=== PATIENT | male | born 2000 | race Caucasian/White ===

== ENCOUNTER 2025-09-07 11:33 | Emergency (ER) | payer OTHER, SELFPAY ==
--- NOTE | ~2025-09-07 | XR_ITS ---
EXAMINATION: XR CHEST CLINICAL INFORMATION: chest pain COMPARISON: None available. TECHNIQUE: 2 views of the chest were obtained. FINDINGS: No significant abnormality is noted involving the heart, lungs, mediastinum, bony thorax or soft tissues. XR/XR chest 2V IMPRESSION: No acute disease Electronically signed by: Lewis Faustin MD 09/07/2025 12:31 PM [facility] [place]
--- NOTE | 2025-09-07 11:34 | ECG_ITS ---
Test Reason : palpitations Blood Pressure : */* mmHG Vent. Rate : 75 BPM Atrial Rate : 75 BPM P-R Int : 134 ms QRS Dur : 90 ms QT Int : 372 ms P-R-T Axes : 52 91 50 degrees QTcB Int : 415 ms Normal sinus rhythm with sinus arrhythmia Rightward axis Nonspecific T wave abnormality Abnormal ECG No previous ECGs available Referred By: Brianna Morelos Electronically Signed By: Domenic Knight
[2025-09-07 11:42] VITALS: BP 135/77; PULSE 70; RESP 16; TEMP 36.6; O2SAT 100; BMI 21.0
--- NOTE | 2025-09-07 11:42 | ED.ARRPALP ---
HPI - Arrhythmia/Palpitations General Chief Complaint: General Medical Stated Complaint: palpitations Time Seen by Provider: 09/07/25 12:30 Source: patient Mode of arrival: ambulatory Limitations: no limitations History of Present Illness HPI narrative: This is a 25 years old male with no past medical history presented to emergency department complaining of palpitation he stated that yesterday the heart rate was about 150. Patient denies any fever or chills vomiting. MD complaint: rapid heart beat and heart racing Onset (ago): day(s) (1) Duration: constant Severity: moderate Context: occurred during rest Associated symptoms: denies other symptoms Related Data Allergies Allergy/AdvReac Type Severity Reaction Status Date / Time No Known Allergies Allergy Verified 09/07/25 11:43 Review of Systems Review of Systems: Yes all other systems are reviewed and are negative [facility] Past Medical History Attestation statement: The following information was validated with the patient. [facility] Narrative: Denies any major medical problems Social History Social History Advance Directives: No Advance Directives Information Provided: No Physical Exam Exam: Exam: No acute distress comfortable in the stretcher Vital Signs: Vital Signs: Last Vital Signs Temp 97.8 F 09/07/25 11:42 Pulse 83 09/07/25 14:26 Resp 14 09/07/25 14:26 BP 134/79 09/07/25 14:26 Pulse Ox 99 09/07/25 14:26 O2 Del Method Room Air 09/07/25 14:26 BMI result Body Mass Index 21.0 Const: General: cooperative, comfortable and no acute distress Nutritional Appearance: average body habitus Orientation/consciousness: patient oriented x3 Limitations: no limitations HEENT: Head: Yes normal to inspection General nose exam: Normal external nose present Face and sinus: Yes normal facial exam Mouth: Normal oral and palatal mucosa present Throat: Yes posterior oropharynx normal Neck: Neck: Yes normal visual inspection Chest: Chest palpation & inspection: normal inspection of the chest Resp: Effort & Inspection: normal respiratory effort Auscultation: clear to auscultation bilaterally Cardio: Jugular venous distension: no JVD Rate: regular rate Rhythm: regular rhythm GI: Inspection: Yes normal to inspection Palpation (GI): Soft to palpation, not firm and nontender Percussion: Yes normal to percussion Auscultation: normal bowel sounds Skin: General skin exam: no rashes or lesions noted, elasticity normal and turgor normal Lesions: no lesions Rashes: no rashes Neuro: General: patient oriented x3 Cranial nerves: Yes CN's II-XII intact bilaterally Course Course Course Narrative: This is an RME: Additional HPI, ROS, PE not included below will be deferred to primary provider. RME assessment and note performed by: Brianna Morelos PA-C This is a 36-yhmd-sij-male, with no known medical problems, who presents to the ER with complaints of palpitations. Reports last night he was in bed and felt as though his left side of his body was getting cold and numb, heart rate when to 156s to 40s, then back up to 140s-150s. Then felt he was very tense and felt his whole body was andre. Reports that he did have chest pain and palpitations. Reports that he is still feeling out of it , feeling BL hand tingling/numbness. Mom and dad both have afib. Recent travel to [place] 2 weeks ago. Reports that he has alot of sinus congestion and cough/congestion. Plan: Labs, EKG, CXR, further ER eval needed Reevaluation(s) Reevaluation #1: The patient remained stable he was monitor to in the emergency department for few hours remained in sinus rhythm he was also seen by Cardiology okay to discharge home I did a point of care ultrasound of his heart no pericardial effusion no wall motion abnormality Time: 14:39 Medical Decision Making Medical Decision Making [facility] Narrative: Patient is here complaining of palpitation SI as 150 yesterday differential diagnosis SVT/atrial fibrillation we will do an electrocardiogram and check labs Differential Diagnosis Differential Diagnoses: The differential diagnosis associated with the presentation includes SVT/AFib/a flutter Admission/Observation Consideration of admission/observation: Escalation of care including admission/observation considered Lab Data [facility] Lab Attestation statement: I reviewed the patient's lab results. 09/07/25 12:00 09/07/25 12:00 Labs: Lab Results 09/07/25 09/07/25 Range/Units 12:00 Unknown WBC 7.5 (4.8-10.8) X10*3/uL RBC 5.16 (4.60-5.80) X10*6/uL Hgb 15.6 (14.0-18.0) g/dl Hct 45.8 (42.0-52.0) % MCV 88.8 (80.0-98.0) fL MCH 30.2 (27.0-33.0) pg MCHC 34.1 (31.0-36.0) g/dl RDW 12.3 (11.0-16.0) % Plt Count 144 L (160-400) X10*3/uL MPV 12.9 H (9.4-12.4) fL Immature Gran % (Auto) 0.5 H (0.0-0.4) % Neut % (Auto) 50.6 (45-73) % Lymph % (Auto) 39.3 (20-40) % [place] % (Auto) 8.2 (2-11) % Eos % (Auto) 0.9 (0-4) % Baso % (Auto) 0.5 (0-2) % Lymph # (Auto) 2.9 (1.2-4.9) X10*3/uL [place] # (Auto) 0.6 (0.1-1.2) X10*3/uL Eos # (Auto) 0.1 (0.0-0.4) X10*3/uL Baso # (Auto) 0.0 (0.0-0.2) X10*3/uL Abs Immat Gran (auto) 0.04 H (0.00-0.03) X10*3/uL Absolute Neuts (auto) 3.8 (2.0-8.3) x10*3/uL Absolute Nucleated RBC 0.000 (0.0-0.012) X10*3/uL Nucleated RBC % (auto) 0.0 (0.0-0.2) /100WBC PT 12.7 (11.2-13.5) SEC INR 1.0 (0.9-1.1) Sodium 142 (135-145) mmol/L Potassium 4.1 (3.3-5.1) mmol/L Chloride 106 (96-108) mmol/L Carbon Dioxide 27 (22-29) mmol/L Anion Gap 13 (12-20) BUN 18 H (9-16) mg/dL Creatinine 1.12 (0.5-1.4) mg/dL Estim Creat Clear Calc 111.6 Estimated GFR > 60 Random Glucose 98 (60-115) mg/dL Calcium 9.5 (8.4-10.2) mg/dL Magnesium 2.2 (1.6-2.6) mg/dL Total Bilirubin 0.8 (0.0-1.0) mg/dL Direct Bilirubin 0.3 (0.0-0.5) mg/dL AST 32 (5-37) U/L ALT 46 H (0-40) U/L Alkaline Phosphatase 56 (39-117) U/L Troponin I High Sens < 2.7 (<3.5-35.0) ng/L Total Protein 7.2 (6.5-8.0) g/dL Albumin 4.7 (3.5-5.0) g/dL TSH 1.27 (0.32-4.0) uIU/mL Influenza Type A (PCR) NEGATIVE (Negative) Influenza Type B (PCR) NEGATIVE (Negative) RSV RNA Qual (PCR) NEGATIVE (Negative) SARS-CoV-2 RNA (RT-PCR) NEGATIVE (Negative) Independent Interpretation I performed an independent interpretation of an: EKG Interpretation: EKG was reviewed interpreted by me as sinus rhythm rate [address]-T changes Independent Historian Clinical information obtained from an independent historian. History obtained from or confirmed by: Other (mother) Discharge Plan Discharge Clinical Impression: Palpitations Patient Disposition: Home, Self-Care Instructions: Heart Palpitations (DC) Additional Instructions: Follow-up with cardiology return to the emergency room if you worse any concern Referrals: Domenic Knight MD [Physician, Cardiology] Stand Alone Forms: Work/School Release Print Language: Ukrainian
[2025-09-07 12:10] VITALS: PULSE 86; RESP 16; O2SAT 99
[2025-09-07 12:23] LABS: MANUAL DIFF FLAG NO
[2025-09-07 12:30] LABS: INTERNATIONAL NORM RATIO 1.0 (0.9-1.1); Prothrombin Time 12.7 SEC (11.2-13.5)
[2025-09-07 12:38] LABS: Hematocrit 45.8 % (42.0-52.0); Hemoglobin 15.6 g/dl (14.0-18.0); Imm Gran Abs Auto 0.04 X10*3/uL (0.00-0.03); Imm Gran Pct Auto 0.5 % (0.0-0.4); Lymphocytes Absolute Auto 2.9 X10*3/uL (1.2-4.9); Mean Corpuscular HGB Conc 34.1 g/dl (31.0-36.0); Mean Corpuscular Hemoglobin 30.2 pg (27.0-33.0); Mean Corpuscular Volume 88.8 fL (80.0-98.0); NRBC Abs Auto 0.000 X10*3/uL (0.0-0.012); NRBC Pct Auto 0.0 /100WBC (0.0-0.2); Platelet Count 144 X10*3/uL (160-400); Red Blood Count 5.16 X10*6/uL (4.60-5.80); White Blood Count 7.5 X10*3/uL (4.8-10.8)
[2025-09-07 12:46] LABS: Resp Syncy Virus RNA Qual PCR NEGATIVE (Negative); SARS COV2 PCR INHOUSE NEGATIVE (Negative)
[2025-09-07 13:00] LABS: Troponin-I High Sensitivity < 2.7 ng/L (<3.5-35.0)
[2025-09-07 13:04] LABS: Alanine Aminotransferase 46 U/L (0-40); Albumin Level 4.7 g/dL (3.5-5.0); Alkaline Phosphatase 56 U/L (39-117); Anion Gap 13 (12-20); Aspartate Amino Transferase 32 U/L (5-37); Blood Urea Nitrogen 18 mg/dL (9-16); Calcium 9.5 mg/dL (8.4-10.2); Carbon Dioxide 27 mmol/L (22-29); Chloride 106 mmol/L (96-108); Creatinine Clr Calc Pharmacy 111.6; Estimated Glomerular Filt Rate > 60; Magnesium 2.2 mg/dL (1.6-2.6); Potassium 4.1 mmol/L (3.3-5.1); Sodium 142 mmol/L (135-145); Total Protein 7.2 g/dL (6.5-8.0)
--- NOTE | 2025-09-07 14:03 | PM.CNCAR ---
History of Present Illness History of Present Illness Date of Service: 09/07/25 Requesting physician: Lenard Florez Chief complaint: palpitations Narrative: [age] who we have been asked to see for palpitations. 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 He said he went home yesterday and while laying in bed started feeling tingling in his hands and arms. He put a Apple watch on and his heart rate was anywhere from 150s to 170 beats per minute. He said this continued for couple of hours. He has not had any previous episodes like this. Today he came and got himself checked into ER for further assessment. He is active and exercises regularly. He went to the gym yesterday also where he does weight training. No symptoms during exercise. Mother has history of supraventricular tachycardia. He uses [employer] in [place] energy drinks but he did not drink 1 yesterday. He also has been using a decongestant for recent viral illness but is saying that he did not use it yesterday. [facility] Social History Social History Advance Directives: No Advance Directives Information Provided: No Meds Allergies Allergy/AdvReac Type Severity Reaction Status Date / Time No Known Allergies Allergy Verified 09/07/25 11:43 Physical Exam Vital Signs: Vital Signs: Last Vital Signs Temp 97.8 F 09/07/25 11:42 Pulse 86 09/07/25 12:10 Resp 16 09/07/25 12:10 BP 135/77 09/07/25 11:42 Pulse Ox 99 09/07/25 12:10 O2 Del Method Room Air 09/07/25 12:10 BMI result Body Mass Index 21.0 GENERAL APPEARANCE: in no acute distress, pleasant. NECK: no carotid bruit, no jugular venous distention. SKIN: no suspicious lesions, warm and dry. HEART: no murmurs, regular rate and rhythm. LUNGS: clear to auscultation bilaterally. ABDOMEN: soft, nontender. EXTREMITIES: no edema. PERIPHERAL PULSES: equal. NEUROLOGIC: No gross deficits, AAO X 3 Objective Labs and Meds 09/07/25 12:00 09/07/25 12:00 Lab results: Laboratory Results - last 24 hr 09/07/25 09/07/25 12:00 Unknown WBC 7.5 RBC 5.16 Hgb 15.6 Hct 45.8 MCV 88.8 MCH 30.2 MCHC 34.1 RDW 12.3 Plt Count 144 L MPV 12.9 H Immature Gran % (Auto) 0.5 H Neut % (Auto) 50.6 Lymph % (Auto) 39.3 [place] % (Auto) 8.2 Eos % (Auto) 0.9 Baso % (Auto) 0.5 Lymph # (Auto) 2.9 [place] # (Auto) 0.6 Eos # (Auto) 0.1 Baso # (Auto) 0.0 Abs Immat Gran (auto) 0.04 H Absolute Neuts (auto) 3.8 Absolute Nucleated RBC 0.000 Nucleated RBC % (auto) 0.0 PT 12.7 INR 1.0 Sodium 142 Potassium 4.1 Chloride 106 Carbon Dioxide 27 Anion Gap 13 BUN 18 H Creatinine 1.12 Estim Creat Clear Calc 111.6 Estimated GFR > 60 Random Glucose 98 Calcium 9.5 Magnesium 2.2 Total Bilirubin 0.8 Direct Bilirubin 0.3 AST 32 ALT 46 H Alkaline Phosphatase 56 Troponin I High Sens < 2.7 Total Protein 7.2 Albumin 4.7 TSH 1.27 Influenza Type A (PCR) NEGATIVE Influenza Type B (PCR) NEGATIVE RSV RNA Qual (PCR) NEGATIVE SARS-CoV-2 RNA (RT-PCR) NEGATIVE Imaging Radiologist's impression: Impressions Chest X-Ray 09/07/25 12:15 IMPRESSION: No acute disease Electronically signed by: Lewis Faustin MD 09/07/2025 12:31 PM [facility] [place] Assessment and Plan (1) Palpitations: Status: Acute Plan 25 year gentleman here for palpitations. The episode happened last night and by his report was approximately 2 hours long. The mother has history of supraventricular tachycardia but the patient did not have any personal history of that. He does not use any prescription medications but has been using Mucinex DM more recently. He has not used it yesterday. He also drinks some energy drinks which I have cautioned him against. His EKG currently showing sinus rhythm. His blood workup is negative. I have advised him to avoid any stimulants. We will arrange cardiac event monitor and outpatient echocardiogram for him. He can be discharged back home. I have taught him some vagal maneuvers and management plan in case he gets recurrent episode of tachycardia (it may help him if this is supraventricular tachycardia). Thank you for allowing me to participate in the care of your patient. Please feel free to contact me if you have any questions. Procedures Date of Service Date of Service: 09/07/25
[2025-09-07 14:26] VITALS: BP 134/79; PULSE 83; RESP 14; O2SAT 99
[2025-09-07 14:47] VITALS: BP 132/69; PULSE 83; RESP 14; TEMP 36.6; O2SAT 99
--- OUTSIDE RECORDS SUMMARY | 2025-09-07 18:22 | XMS_ITS | Clinical Summary ---
Author Organization [facility] Address [address] [place] [address] Care Team Providers Care Property Analyst Name Role Phone Unavailable Primary Care Provider Unavailabl e Social History Tobacco Use Types Packs/Day Years Used Date Smoking Tobacco: Never Assessed Sex and Gender Information Value Date Recorded Sex Assigned at Not on file Legal Sex Male 6:59 PM EST Gender Identity Not on file Sexual Orientation Not on file Plan of Treatment Health Maintenance Due Date Last Done Comments HPV Vaccines (1 - Male 3-dos e series) 02/14/2015 DTaP,Tdap,and Td Vaccines (1 - Tdap) 02/14/2019 Hepatitis B Vaccines (1 of 3 - 19+ 3-dose series) 02/14/2019 Depression Screening 10/15/2024 COVID-19 Vaccine (1 - 2024-2 6 season) 2025 Influenza Vaccine (#1) 2025 RSV Immunization Adult Patie nts (1 - 1-dose 75+ series) 02/14/2075 HIB Vaccines Aged Out No longer eligi ble based on patient's age to complete this topic Hepatitis A Vaccines Aged Out No long er eligible based on patient's age to complete this topic IPV Vaccines Aged Out No longer eligi ble based on patient's age to complete this topic MMR Vaccines Aged Out No longer eligi ble based on patient's age to complete this topic Meningococcal ACWY Vaccine Aged Out N o longer eligible based on patient's age to complete this topic Meningococcal B Vaccine Aged Out No l onger eligible based on patient's age to complete this topic Pneumococcal Vaccine: Pediat rics (0 to 5 Years) and At-Risk Patients (6 to 49 Years) Aged Out No longer eligible b ased on patient's age to complete this topic RSV Immunization Patients Un javier 20 months Aged Out No longer eligible b ased on patient's age to complete this topic Varicella Vaccines Aged Out No longer eligible based on patient's age to complete this topic
--- OUTSIDE RECORDS SUMMARY | 2025-09-07 18:22 | XMS_ITS ---
Author Name [facility] Organization Unknown Care Team Organization Name Specialty Phone Email Start Date End Da te [facility] NULL Primary Care 10/23/2022 06/02/2024 [facility] NULL Primary Care 08/22/2022 06/02/2024
== END 2025-09-07 14:57 | disposition home or self-care (01) ==
PROVIDERS: Physician Assistant Medical; Emergency Provider Emergency Medicine
DX: R00.2 Palpitations (principal); R07.9 Chest pain, unspecified; R94.31 Abnormal electrocardiogram [ECG] [EKG]; Z03.818 Encounter for observation for suspected exposure to other biological agents ruled out
CPT/HCPCS: 71046; 80048; 80076; 83735; 84443; 84484; 85025; 85610; 87637; 93005; 99283; 99284

== ENCOUNTER → 2025-09-07 11:47 | Outpatient (BNV) | payer OTHER, SELFPAY | PROVIDERS: Emergency Provider Emergency Medicine; Visit Provider Radiology Diagnostic Radiology | DX: R07.9 Chest pain, unspecified (principal) | CPT/HCPCS: 71046 ==

== ENCOUNTER → 2025-09-07 13:33 | Outpatient (BNV) | payer OTHER, SELFPAY | PROVIDERS: Emergency Provider Emergency Medicine; Visit Provider Internal Medicine Cardiovascular Disease | DX: R00.2 Palpitations (principal) | CPT/HCPCS: 93010; 99284 ==